=== PATIENT | male | born 1955 | race Caucasian/White ===

== ENCOUNTER 2019-01-02 07:50 | Inpatient (IN) | payer OTHER ==
[2019-01-02] VITALS (15 sets, daily range): BP systolic 125–183; BP diastolic 67–90
[~2019-01-02] VITALS: Ht 182.9 cm; Wt 98.5 kg
[2019-01-02] MEDS ORDERED: fentaNYL PF VIAL 100 MCG/2 ML VIAL IV ONE (08:15)
[2019-01-02] MEDS ORDERED: ONDANSETRON PF 4 MG/2 ML VIAL. IV ONE (08:15)
[2019-01-02] MEDS ORDERED: IV NORMAL SALINE 1000ML BAG 1,000 ML IV SCH (08:15)
[2019-01-02 08:39] LABS: BASO # 0.1 x10^3/uL (0.0-0.2); BASO % 1 % (0-3); EOS # 0.2 x10^3/uL (0.0-0.7); EOS % 2 % (0-3); HEMATOCRIT 43.4 % (39.0-53.0); HEMOGLOBIN 14.9 g/dL (13.0-17.5); LYMPH # 1.5 x10^3/uL (1.0-4.8); LYMPH % 13 % (24-48); MEAN CORPUSCULAR HEMOGLOBIN 34 pg (25-35); MEAN CORPUSCULAR HGB CONC 34 g/dL (31-37); MEAN CORPUSCULAR VOLUME 98 fL (79-100); MONO # 0.7 x10^3/uL (0.0-1.1); MONO % 6 % (0-9); NEUT # 9.4 x10^3uL (1.8-7.7); NEUT % 79 % (31-73); PLATELET COUNT 253 x10^3/uL (140-400); RED BLOOD COUNT 4.45 x10^6/uL (4.30-5.70); RED CELL DISTRIBUTION WIDTH 13.9 % (11.5-14.5); WHITE BLOOD COUNT 11.9 x10^3/uL (4.0-11.0)
[2019-01-02] MEDS ORDERED: CONTRAST GIVEN. MC PRN (08:45)
[2019-01-02] MEDS ORDERED: IOHEXOL 300 MG/ML 100ML VIAL. IV ONE (08:45)
[2019-01-02 08:48] LABS: CALCIUM 8.8 mg/dL (8.5-10.1); CREATININE 0.7 mg/dL (0.7-1.3); GFR 114.3; POTASSIUM 4.2 mmol/L (3.5-5.1)
[2019-01-02 08:54] LABS: ALBUMIN 4.1 g/dL (3.4-5.0); ALBUMIN/GLOBULIN RATIO 1.2 (1.0-1.7); TOTAL BILIRUBIN 0.4 mg/dL (0.2-1.0); TOTAL PROTEIN 7.5 g/dL (6.4-8.2)
[2019-01-02 08:58] LABS: PROTHROMBIN TIME PATIENT 12.2 SEC (11.7-14.0)
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
[2019-01-02 11:02] LABS: BILIRUBIN,URINE NEGATIVE (NEG); CLARITY,URINE CLEAR; COLOR,URINE YELLOW; NITRITE,URINE NEGATIVE (NEG); PROTEIN,URINE NEGATIVE (NEG-TRACE); UROBILINOGEN,URINE 0.2 mg/dL (0.2 mg/dL)
[2019-01-02] MEDS: IV NORMAL SALINE 1000ML BAG 1,000 ML IV SCH (11:02)
[2019-01-02 11:11] LABS: BARBITURATES NEG (NEG); BENZODIAZEPINES NEG (NEG); CANNABINOIDS NEG (NEG); COCAINE NEG (NEG); METHADONE NEG (NEG); OPIATES NEG (NEG); PHENCYCLIDINE NEG (NEG)
[2019-01-02 11:14] LABS: BACTERIA,URINE 0 /HPF (0-FEW); RBC,URINE 0 /HPF (0-2); SQUAMOUS EPITHELIAL CELL,UR FEW /LPF; WBC,URINE 0 /HPF (0-4)
[2019-01-02 11:15] LABS: AMPHETAMINE/METHAMPHETAMINE NEG (NEG)
--- NOTE | 2019-01-02 11:49 | EKG ---
[facility] [address] [place] [address] Test Date: 2019-01-02 Test Time: 08:05:22 Pat Name: GABE ALLEN Department: Room: 107 1 Gender: M Department Coordinator: : 1955 Requested By: SANKET WILLIAM Order Number: [id number] Reading MD: Measurements Intervals [place] Rate: 69 P: 27 IA: 150 QRS: 39 QRSD: 96 T: 53 QT: 394 QTc: 424 Interpretive Statements SINUS RHYTHM NO SPECIFIC ECG ABNORMALITIES RI6.01 No previous ECG available for comparison
[2019-01-02] MEDS ORDERED: TAMS0.4C97 PO (12:11)
[2019-01-02] MEDS ORDERED: LOSA-73 PO (12:11)
[2019-01-02] MEDS ORDERED: DUTA0.5C PO (12:11)
[2019-01-02] MEDS ORDERED: MV-M1TAB52 PO (12:11)
[2019-01-02] MEDS ORDERED: HYDR50TA6 PO (12:11)
[2019-01-02] MEDS ORDERED: AMLO10TA8 PO (12:11)
--- NOTE | 2019-01-02 12:20 | PDOC ---
PULMONARY PROGRESS NOTES Vitals Vital Signs Date Time Temp Pulse Resp B/P (MAP) Pulse Ox O2 Delivery O2 Flow Rate FiO2 01/02/19 11:20 68 21 130/71 (90) 95 Room Air 01/02/19 07:52 98.1 98.1 Labs Laboratory Tests Test 01/02/19 08:20 01/02/19 10:45 White Blood Count 11.9 x10^3/uL (4.0-11.0) Red Blood Count 4.45 x10^6/uL (4.30-5.70) Hemoglobin 14.9 g/dL (13.0-17.5) Hematocrit 43.4 % (39.0-53.0) Mean Corpuscular Volume 98 fL (79-100) Mean Corpuscular Hemoglobin 34 pg (25-35) Mean Corpuscular Hemoglobin Concent 34 g/dL (31-37) Red Cell Distribution Width 13.9 % (11.5-14.5) Platelet Count 253 x10^3/uL (140-400) Neutrophils (%) (Auto) 79 % (31-73) Lymphocytes (%) (Auto) 13 % (24-48) Monocytes (%) (Auto) 6 % (0-9) Eosinophils (%) (Auto) 2 % (0-3) Basophils (%) (Auto) 1 % (0-3) Neutrophils # (Auto) 9.4 x10^3uL (1.8-7.7) Lymphocytes # (Auto) 1.5 x10^3/uL (1.0-4.8) Monocytes # (Auto) 0.7 x10^3/uL (0.0-1.1) Eosinophils # (Auto) 0.2 x10^3/uL (0.0-0.7) Basophils # (Auto) 0.1 x10^3/uL (0.0-0.2) Prothrombin Time 12.2 SEC (11.7-14.0) Prothromb Time International Ratio 0.9 (0.8-1.1) Activated Partial Thromboplast Time 26 SEC (24-38) Sodium Level 138 mmol/L (136-145) Potassium Level 4.2 mmol/L (3.5-5.1) Chloride Level 101 mmol/L (98-107) Carbon Dioxide Level 26 mmol/L (21-32) Anion Gap 11 (6-14) Blood Urea Nitrogen 17 mg/dL (8-26) Creatinine 0.7 mg/dL (0.7-1.3) Estimated GFR (Cockcroft-Gault) 114.3 BUN/Creatinine Ratio 24 (6-20) Glucose Level 141 mg/dL (70-99) Calcium Level 8.8 mg/dL (8.5-10.1) Total Bilirubin 0.4 mg/dL (0.2-1.0) Aspartate Amino Transf (AST/SGOT) 39 U/L (15-37) Alanine Aminotransferase (ALT/SGPT) 48 U/L (16-63) Alkaline Phosphatase 114 U/L (46-116) Total Protein 7.5 g/dL (6.4-8.2) Albumin 4.1 g/dL (3.4-5.0) Albumin/Globulin Ratio 1.2 (1.0-1.7) Lipase 63 U/L (73-393) Ethyl Alcohol Level < 10 mg/dL (0-10) Urine Collection Type Unknown Urine Color Yellow Urine Clarity Clear Urine pH 7.0 Urine Specific [place] >=1.030 Urine Protein Negative mg/dL (NEG-TRACE) Urine Glucose (UA) Negative mg/dL (NEG) Urine Ketones (Stick) Negative mg/dL (NEG) Urine Blood Negative (NEG) Urine Nitrite Negative (NEG) Urine Bilirubin Negative (NEG) Urine Urobilinogen Dipstick 0.2 mg/dL (0.2 mg/dL) Urine Leukocyte Esterase Negative (NEG) Urine RBC 0 /HPF (0-2) Urine WBC 0 /HPF (0-4) Urine Squamous Epithelial Cells Few /LPF Urine Bacteria 0 /HPF (0-FEW) Urine Opiates Screen Neg (NEG) Urine Methadone Screen Neg (NEG) Urine Barbiturates Neg (NEG) Urine Phencyclidine Screen Neg (NEG) Urine Amphetamine/Methamphetamine Neg (NEG) Urine Benzodiazepines Screen Neg (NEG) Urine Cocaine Screen Neg (NEG) Urine Cannabinoids Screen Neg (NEG) Urine Ethyl Alcohol Neg (NEG) Laboratory Tests Test 01/02/19 08:20 01/02/19 10:45 White Blood Count 11.9 x10^3/uL (4.0-11.0) Red Blood Count 4.45 x10^6/uL (4.30-5.70) Hemoglobin 14.9 g/dL (13.0-17.5) Hematocrit 43.4 % (39.0-53.0) Mean Corpuscular Volume 98 fL (79-100) Mean Corpuscular Hemoglobin 34 pg (25-35) Mean Corpuscular Hemoglobin Concent 34 g/dL (31-37) Red Cell Distribution Width 13.9 % (11.5-14.5) Platelet Count 253 x10^3/uL (140-400) Neutrophils (%) (Auto) 79 % (31-73) Lymphocytes (%) (Auto) 13 % (24-48) Monocytes (%) (Auto) 6 % (0-9) Eosinophils (%) (Auto) 2 % (0-3) Basophils (%) (Auto) 1 % (0-3) Neutrophils # (Auto) 9.4 x10^3uL (1.8-7.7) Lymphocytes # (Auto) 1.5 x10^3/uL (1.0-4.8) Monocytes # (Auto) 0.7 x10^3/uL (0.0-1.1) Eosinophils # (Auto) 0.2 x10^3/uL (0.0-0.7) Basophils # (Auto) 0.1 x10^3/uL (0.0-0.2) Prothrombin Time 12.2 SEC (11.7-14.0) Prothromb Time International Ratio 0.9 (0.8-1.1) Activated Partial Thromboplast Time 26 SEC (24-38) Sodium Level 138 mmol/L (136-145) Potassium Level 4.2 mmol/L (3.5-5.1) Chloride Level 101 mmol/L (98-107) Carbon Dioxide Level 26 mmol/L (21-32) Anion Gap 11 (6-14) Blood Urea Nitrogen 17 mg/dL (8-26) Creatinine 0.7 mg/dL (0.7-1.3) Estimated GFR (Cockcroft-Gault) 114.3 BUN/Creatinine Ratio 24 (6-20) Glucose Level 141 mg/dL (70-99) Calcium Level 8.8 mg/dL (8.5-10.1) Total Bilirubin 0.4 mg/dL (0.2-1.0) Aspartate Amino Transf (AST/SGOT) 39 U/L (15-37) Alanine Aminotransferase (ALT/SGPT) 48 U/L (16-63) Alkaline Phosphatase 114 U/L (46-116) Total Protein 7.5 g/dL (6.4-8.2) Albumin 4.1 g/dL (3.4-5.0) Albumin/Globulin Ratio 1.2 (1.0-1.7) Lipase 63 U/L (73-393) Ethyl Alcohol Level < 10 mg/dL (0-10) Urine Collection Type Unknown Urine Color Yellow Urine Clarity Clear Urine pH 7.0 Urine Specific [place] >=1.030 Urine Protein Negative mg/dL (NEG-TRACE) Urine Glucose (UA) Negative mg/dL (NEG) Urine Ketones (Stick) Negative mg/dL (NEG) Urine Blood Negative (NEG) Urine Nitrite Negative (NEG) Urine Bilirubin Negative (NEG) Urine Urobilinogen Dipstick 0.2 mg/dL (0.2 mg/dL) Urine Leukocyte Esterase Negative (NEG) Urine RBC 0 /HPF (0-2) Urine WBC 0 /HPF (0-4) Urine Squamous Epithelial Cells Few /LPF Urine Bacteria 0 /HPF (0-FEW) Urine Opiates Screen Neg (NEG) Urine Methadone Screen Neg (NEG) Urine Barbiturates Neg (NEG) Urine Phencyclidine Screen Neg (NEG) Urine Amphetamine/Methamphetamine Neg (NEG) Urine Benzodiazepines Screen Neg (NEG) Urine Cocaine Screen Neg (NEG) Urine Cannabinoids Screen Neg (NEG) Urine Ethyl Alcohol Neg (NEG) Medications Active Scripts Medications Dose Route/Sig Max Daily Dose Days Date Category Alive Once Daily Women 50 Plus (Mv-Mn/Folic Acid/Vit [id number]) 1 Each Tablet 1 Each PO DAILY 01/02/19 Reported Avodart (Dutasteride) 0.5 Mg Capsule 0.5 Mg PO DAILY 01/02/19 Reported Flomax (Tamsulosin Hcl) 0.4 Mg Cap.er.24h 1 Cap PO DAILY 01/02/19 Reported Losartan Potassium 50 Mg Tablet 50 Mg PO DAILY 01/02/19 Reported Amlodipine Besylate 10 Mg Tablet 10 Mg PO DAILY 01/02/19 Reported Hydrochlorothiazide Tablet (Hydrochlorothiazide) 50 Mg Tablet 25 Mg PO DAILY 01/02/19 Reported Impression . full nore dictated thanks repeat ct in 4 months resp status compensated MANDA FOSTER MD Jan 02, 2019 12:20
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
[2019-01-02] MEDS: IPRATRPIUM/ALBUTEROL 0.5/2.5MG 3 ML NEBU. NEB SCH ×3 (12:47→19:57)
--- NOTE | 2019-01-02 15:07 | NUR ---
SS following for discharge planning. SS reviewed pt chart. Pt is from home with spouse and is currently on room air. No discharge needs noted at this time. SS will continue to follow for discharge planning.
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
[2019-01-02] MEDS: IBUPROFEN 400 MG TABLET. PO PRN ×2 (16:38→21:52)
[2019-01-02] MEDS: LIDOCAINE (700MG/PATCH) PATCH. TD PRN (16:38)
[2019-01-02] MEDS ORDERED: hydrALAZINE 20 MG/ML VIAL. IVP ONE (17:00)
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
[2019-01-03] VITALS (25 sets, daily range): BP systolic 112–197; BP diastolic 57–97
[2019-01-03] MEDS: IV NORMAL SALINE 1000ML BAG 1,000 ML IV SCH ×2 (03:02→04:10)
[2019-01-03] MEDS ORDERED: ZOLPIDEM 5 MG TABLET. PO PRN (03:30)
[2019-01-03] MEDS: MORPHINE SULFATE 2 MG/ML VIAL. IV PRN ×2 (04:05→11:23)
[2019-01-03 05:21] LABS: BASO % 0 % (0-3); EOS # 0.2 x10^3/uL (0.0-0.7); EOS % 2 % (0-3); HEMATOCRIT 39.4 % (39.0-53.0); HEMOGLOBIN 13.5 g/dL (13.0-17.5); LYMPH % 19 % (24-48); MEAN CORPUSCULAR HEMOGLOBIN 34 pg (25-35); MEAN CORPUSCULAR HGB CONC 34 g/dL (31-37); MEAN CORPUSCULAR VOLUME 98 fL (79-100); MONO % 9 % (0-9); NEUT # 7.4 x10^3uL (1.8-7.7); NEUT % 70 % (31-73); PLATELET COUNT 217 x10^3/uL (140-400); RED BLOOD COUNT 4.02 x10^6/uL (4.30-5.70); RED CELL DISTRIBUTION WIDTH 13.9 % (11.5-14.5); WHITE BLOOD COUNT 10.6 x10^3/uL (4.0-11.0)
[2019-01-03 05:55] LABS: ALBUMIN 3.5 g/dL (3.4-5.0); ALBUMIN/GLOBULIN RATIO 1.1 (1.0-1.7); CALCIUM 8.5 mg/dL (8.5-10.1); CREATININE 0.6 mg/dL (0.7-1.3); GFR 136.5; POTASSIUM 3.7 mmol/L (3.5-5.1); TOTAL BILIRUBIN 0.9 mg/dL (0.2-1.0); TOTAL PROTEIN 6.6 g/dL (6.4-8.2)
[2019-01-03] MEDS: oxyCODONE/APAP 5/325 1 TAB TABLET PO PRN ×2 (06:36→17:36)
[2019-01-03] MEDS: IPRATRPIUM/ALBUTEROL 0.5/2.5MG 3 ML NEBU. NEB SCH ×3 (08:06→19:56)
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
[2019-01-03] MEDS ORDERED: ACETAMINOPHEN 500 MG TABLET PO PRN (14:00)
[2019-01-03] MEDS ORDERED: ONDANSETRON PF 4 MG/2 ML VIAL. IV PRN (14:00)
[2019-01-03] MEDS ORDERED: hydrALAZINE 20 MG/ML VIAL. IVP PRN (14:00)
[2019-01-03] MEDS: hydroCHLOROthiazide 25 MG TABLET PO SCH (14:44)
[2019-01-03] MEDS: TAMSULOSIN 0.4 MG CAP.ER.24H. PO SCH (14:44)
[2019-01-03] MEDS: MULTIVITAMIN with MINERAL TABLET. PO SCH (14:44)
[2019-01-03] MEDS: LOSARTAN POTASSIUM 50 MG TABLET. PO SCH (14:45)
[2019-01-03] MEDS: amLODIPine BESYLATE 10 MG TABLET PO SCH (14:45)
[2019-01-03] MEDS: DUTASTERIDE 0.5 MG CAPSULE PO SCH (15:00)
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
--- NOTE | 2019-01-03 16:25 | NUR ---
Spoke with KRISHNA Samuels, no needs for wound care on this pt. WC consult to be cancel.
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
[2019-01-03] MEDS: LIDOCAINE (700MG/PATCH) PATCH. TD PRN (17:36)
[2019-01-03] MEDS: IBUPROFEN 400 MG TABLET. PO PRN (22:29)
[2019-01-04] VITALS (7 sets, daily range): BP systolic 120–144; BP diastolic 66–84
[2019-01-04] MEDS: IPRATRPIUM/ALBUTEROL 0.5/2.5MG 3 ML NEBU. NEB SCH (07:37)
[2019-01-04] MEDS: hydroCHLOROthiazide 25 MG TABLET PO SCH (07:58)
[2019-01-04] MEDS: MULTIVITAMIN with MINERAL TABLET. PO SCH (07:58)
[2019-01-04] MEDS: LOSARTAN POTASSIUM 50 MG TABLET. PO SCH (07:58)
[2019-01-04] MEDS: TAMSULOSIN 0.4 MG CAP.ER.24H. PO SCH (07:58)
[2019-01-04] MEDS: oxyCODONE/APAP 5/325 1 TAB TABLET PO PRN (07:58)
[2019-01-04] MEDS: amLODIPine BESYLATE 10 MG TABLET PO SCH (07:59)
[2019-01-04] MEDS: DUTASTERIDE 0.5 MG CAPSULE PO SCH (08:05)
--- NOTE | 2019-01-04 08:31 | RAD ---
PQRS Compliance statement: One or more of the following individualized dose reduction techniques were utilized for this examination: 1. Automated exposure control. 2. Adjustment of the mA and/or kV according to patient size. 3. Use of iterative reconstruction technique. Indication: Intracranial hemorrhage. Follow-up. TECHNIQUE: CT head without IV contrast COMPARISON: Previous CT from 01/03/2019. FINDINGS: Redemonstrated is a focus of intracranial hemorrhage in the medial aspect of the right posterior frontal lobe and in the inferior aspect of the left posterior frontal lobe with mild surrounding edema. The brain on the right side approximately measures 2.1 x 0.7 cm and on the left side measures 1.3 x 0.7 cm. Bifrontal atrophy. No new bleed. The ventricles and basal cisterns are within normal limits. Orbits are within normal limits. No acute calvarial fracture suspicious calvarial lesion. Visualized paranasal sinuses and mastoid air cells are clear. No midline shift. IMPRESSION: Stable bilateral frontal lobe intraparenchymal hemorrhages. Electronically signed by: Kyle Coronel DO (01/04/2019 8:29 AM) [facility]
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
[2019-01-04] MEDS ORDERED: LIDO700A21 TD (09:35)
[2019-01-04] MEDS ORDERED: OXYC1TAB15 PO (09:36)
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
== END 2019-01-04 11:25 | disposition home or self-care (01) | DRG 87 ==
LOC: ER 07:50 → 1 WEST ICU 10:32
PROVIDERS: ADMIT Family Medicine; ATTEND Family Medicine
DX: S06.5X0A Traumatic subdural hemorrhage without loss of consciousness, initial encounter (principal); E66.9 Obesity, unspecified; E78.00 Pure hypercholesterolemia, unspecified; E78.5 Hyperlipidemia, unspecified; F17.210 Nicotine dependence, cigarettes, uncomplicated; I10 Essential (primary) hypertension; J43.9 Emphysema, unspecified; M47.812 Spondylosis without myelopathy or radiculopathy, cervical region; N40.0 Benign prostatic hyperplasia without lower urinary tract symptoms; S30.1XXA Contusion of abdominal wall, initial encounter; R91.1 Solitary pulmonary nodule; Z68.29 Body mass index [BMI] 29.0-29.9, adult; V43.52XA Car driver injured in collision with other type car in traffic accident, initial encounter; Y93.89 Activity, other specified; Y92.89 Other specified places as the place of occurrence of the external cause; Y99.8 Other external cause status; Z90.49 Acquired absence of other specified parts of digestive tract
CPT/HCPCS: 36415; 70450; 70551; 71260; 72125; 73030; 73090; 74177; 80053; 80307; 81001; 83690; 85025; 85610; 85730; 87641; 93005; 94640; 96361; 96374; 96375; G0480; J2270; J2405; J3010; J7030; J7620; Q9967; 99285-25